=== PATIENT | male | born 1965 | race Asian ===

== ENCOUNTER 2017-12-19 14:13 | Inpatient (IN) | payer BC ==
[~2017-12-19] VITALS: Wt 67.6 kg
[~2017-12-19 14:13] MED LIST: NO HOME MEDICATIONS
[2017-12-19] MEDS ORDERED: TYLENOL W/COD1 UDTAB PO (14:29)
[2017-12-19 15:48] LABS: BASO % 0.6 % (0.0-2.0); EOS # 0.2 (0.0-0.7); EOS % 2.9 % (0-4.0); GRAN % 72.2 % (42.2-75.2); HEMATOCRIT 44.8 % (42.0-52.0); HEMOGLOBIN 15.1 g/dl (13.5-18.0); LYMPH # 1.1 (1.2-3.4); LYMPH % 15.8 % (20.0-51.0); MEAN CELL VOLUME 98 fl (80.0-100.0); MEAN CORPUSCULAR HEMOGLOBIN 33 pg (27.0-31.0); MEAN CORPUSCULAR HGB CONC 34 g/dl (33.0-37.0); MEAN PLATELET VOLUME 9.6 fl (7.4-10.4); MONO # 0.6 (0.1-0.6); MONO % 8.4 % (1.7-9.3); PLATELET COUNT 276 K/mm3 (130-400); RED BLOOD COUNT 4.58 M/mm3 (4.20-5.60); REDCELL DISTRIBUTION WIDTH-CV 11.9 % (11.5-14.5)
[2017-12-19 16:00] LABS: ALBUMIN 4.3 gm/dL (3.5-5.0); BILIRUBIN,TOTAL 0.5 mg/dL (0.0-1.0); C-REACTIVE PROTEIN 1.5 mg/dL (0.0-0.9); CALCIUM 9.3 mg/dL (8.4-10.2); CREATININE, serum 0.62 mg/dL (0.66-1.25); POTASSIUM 4.3 mmol/L (3.4-5.0); TOTAL PROTEIN 7.4 gm/dL (6.4-8.2)
[2017-12-19 16:24] LABS: INR 1.1 (0.8-3.0); PROTHROMBIN TIME 13.1 SECONDS (9.7-12.8)
[2017-12-19 16:26] LABS: PARTIAL THROMBOPLASTIN TIME 34.9 SECONDS (26.0-37.0)
[2017-12-19 18:19] VITALS: BP 134/95; PULSE 72; TEMP 98
[2017-12-19 18:25] VITALS: BP 135/94; PULSE 74; TEMP 98
[2017-12-19 19:58] VITALS: BP 123/87; PULSE 79; TEMP 98.6
[2017-12-20 00:46] VITALS: BP 124/83; PULSE 75; TEMP 98.6
[2017-12-20 05:28] VITALS: BP 116/84; PULSE 97; TEMP 98.6
[2017-12-20 06:13] LABS: BASO % 0.5 % (0.0-2.0); EOS # 0.2 (0.0-0.7); EOS % 2.7 % (0-4.0); GRAN # 4.3 (1.4-6.5); GRAN % 68.6 % (42.2-75.2); HEMATOCRIT 40.9 % (42.0-52.0); HEMOGLOBIN 13.9 g/dl (13.5-18.0); LYMPH # 1.2 (1.2-3.4); LYMPH % 18.2 % (20.0-51.0); MEAN CELL VOLUME 97 fl (80.0-100.0); MEAN CORPUSCULAR HEMOGLOBIN 33 pg (27.0-31.0); MEAN CORPUSCULAR HGB CONC 34 g/dl (33.0-37.0); MEAN PLATELET VOLUME 9.6 fl (7.4-10.4); MONO # 0.6 (0.1-0.6); MONO % 9.5 % (1.7-9.3); PLATELET COUNT 274 K/mm3 (130-400); RED BLOOD COUNT 4.24 M/mm3 (4.20-5.60); REDCELL DISTRIBUTION WIDTH-CV 11.8 % (11.5-14.5)
[2017-12-20 06:32] LABS: CALCIUM 8.8 mg/dL (8.4-10.2); CREATININE, serum 0.68 mg/dL (0.66-1.25); PHOSPHOROUS 3.2 mg/dL (2.5-4.5); POTASSIUM 3.9 mmol/L (3.4-5.0)
[2017-12-20 07:38] VITALS: BP 116/77; PULSE 82; TEMP 98.8
[2017-12-20 11:34] VITALS: BP 118/71; PULSE 88; TEMP 98.1
[2017-12-20 15:34] VITALS: BP 125/95; PULSE 83; TEMP 99.1
[2017-12-20 20:56] VITALS: BP 143/65; PULSE 85; TEMP 98.6
[2017-12-21] VITALS (14 sets, daily range): BP systolic 109–143; BP diastolic 76–98; PULSE 72–91; TEMP 97.8–99.8
[2017-12-22 05:59] VITALS: BP 127/84; PULSE 73; TEMP 98
[2017-12-22 06:52] LABS: BASO % 0.5 % (0.0-2.0); EOS # 0.2 (0.0-0.7); EOS % 3.4 % (0-4.0); GRAN # 4.5 (1.4-6.5); GRAN % 71.2 % (42.2-75.2); HEMATOCRIT 39.7 % (42.0-52.0); HEMOGLOBIN 13.4 g/dl (13.5-18.0); LYMPH # 1.1 (1.2-3.4); LYMPH % 17.1 % (20.0-51.0); MEAN CELL VOLUME 96 fl (80.0-100.0); MEAN CORPUSCULAR HEMOGLOBIN 32 pg (27.0-31.0); MEAN CORPUSCULAR HGB CONC 34 g/dl (33.0-37.0); MEAN PLATELET VOLUME 9.4 fl (7.4-10.4); MONO # 0.5 (0.1-0.6); MONO % 7.5 % (1.7-9.3); PLATELET COUNT 268 K/mm3 (130-400); RED BLOOD COUNT 4.14 M/mm3 (4.20-5.60); REDCELL DISTRIBUTION WIDTH-CV 11.8 % (11.5-14.5)
[2017-12-22 07:09] LABS: CALCIUM 8.5 mg/dL (8.4-10.2); CREATININE, serum 0.78 mg/dL (0.66-1.25); POTASSIUM 3.7 mmol/L (3.4-5.0)
[2017-12-22 07:34] VITALS: BP 120/87; PULSE 68; TEMP 98.7
[2017-12-22 12:00] VITALS: BP 133/90; PULSE 80; TEMP 98.1
[2017-12-22 15:41] VITALS: BP 118/76; PULSE 82; TEMP 97.8
[2017-12-22 19:20] VITALS: BP 135/82; PULSE 77; TEMP 97.8
[2017-12-22 23:34] VITALS: BP 142/94; PULSE 79; TEMP 98.2
[2017-12-23 04:43] VITALS: BP 132/85; PULSE 72; TEMP 97.9
[2017-12-23 08:15] VITALS: BP 129/91; PULSE 83; TEMP 98.5
[2017-12-23 11:54] VITALS: BP 137/91; PULSE 78; TEMP 98.1
[2017-12-23 15:39] VITALS: BP 137/82; PULSE 83; TEMP 98.9
[2017-12-23 20:08] VITALS: BP 133/87; PULSE 77; TEMP 97.7
[2017-12-23 23:02] LABS: QUANTIFERON TB GOLD Positive (Negative)
[2017-12-23 23:25] VITALS: BP 117/77; PULSE 73; TEMP 98.7
[2017-12-24 04:02] VITALS: BP 128/86; PULSE 75; TEMP 97.7
[2017-12-24 07:43] VITALS: BP 131/93; PULSE 68; TEMP 98.9
[2017-12-24 11:08] VITALS: BP 127/85; PULSE 80; TEMP 98.4
[2017-12-24 15:25] VITALS: BP 141/93; PULSE 83; TEMP 97.6
[2017-12-24 17:44] LABS: FOLATE (FOLIC ACID) 9.5 ng/mL (7.0-31.4)
[2017-12-24 19:01] VITALS: BP 139/97; PULSE 72
[2017-12-25] VITALS (7 sets, daily range): BP systolic 126–144; BP diastolic 81–98; PULSE 73–87; TEMP 97.3–98.6
[2017-12-25 07:45] LABS: BASO % 0.3 % (0.0-2.0); EOS # 0.3 (0.0-0.7); EOS % 4.7 % (0-4.0); GRAN # 4.3 (1.4-6.5); HEMATOCRIT 39.9 % (42.0-52.0); HEMOGLOBIN 13.6 g/dl (13.5-18.0); LYMPH % 16.3 % (20.0-51.0); MEAN CELL VOLUME 96 fl (80.0-100.0); MEAN CORPUSCULAR HEMOGLOBIN 33 pg (27.0-31.0); MEAN CORPUSCULAR HGB CONC 34 g/dl (33.0-37.0); MEAN PLATELET VOLUME 9.5 fl (7.4-10.4); MONO # 0.5 (0.1-0.6); MONO % 8.5 % (1.7-9.3); PLATELET COUNT 269 K/mm3 (130-400); RED BLOOD COUNT 4.17 M/mm3 (4.20-5.60); REDCELL DISTRIBUTION WIDTH-CV 11.8 % (11.5-14.5)
[2017-12-25 07:56] LABS: ALBUMIN 3.5 gm/dL (3.5-5.0); CALCIUM 8.8 mg/dL (8.4-10.2); CREATININE, serum 0.79 mg/dL (0.66-1.25); MAGNESIUM 2.2 mg/dL (1.6-2.3); PHOSPHOROUS 3.9 mg/dL (2.5-4.5); POTASSIUM 3.6 mmol/L (3.4-5.0); TOTAL PROTEIN 6.7 gm/dL (6.4-8.2)
[2017-12-25 08:15] LABS: BILIRUBIN UNCONJUGATED 0.4 mg/dL (0.0-1.1); BILIRUBIN,DIRECT 0.1 mg/dL (0.0-0.4); BILIRUBIN,TOTAL 0.6 mg/dL (0.0-1.0)
[2017-12-26 04:04] VITALS: BP 127/89; PULSE 75; TEMP 97.1
[2017-12-26 06:54] LABS: BASO % 0.3 % (0.0-2.0); EOS # 0.3 (0.0-0.7); EOS % 5.5 % (0-4.0); GRAN % 66.6 % (42.2-75.2); HEMATOCRIT 39.7 % (42.0-52.0); HEMOGLOBIN 13.2 g/dl (13.5-18.0); LYMPH # 1.1 (1.2-3.4); LYMPH % 17.7 % (20.0-51.0); MEAN CELL VOLUME 96 fl (80.0-100.0); MEAN CORPUSCULAR HEMOGLOBIN 32 pg (27.0-31.0); MEAN CORPUSCULAR HGB CONC 33 g/dl (33.0-37.0); MEAN PLATELET VOLUME 9.4 fl (7.4-10.4); MONO # 0.6 (0.1-0.6); MONO % 9.4 % (1.7-9.3); PLATELET COUNT 280 K/mm3 (130-400); RED BLOOD COUNT 4.12 M/mm3 (4.20-5.60); REDCELL DISTRIBUTION WIDTH-CV 11.9 % (11.5-14.5)
[2017-12-26 07:09] LABS: CALCIUM 8.6 mg/dL (8.4-10.2); CREATININE, serum 0.67 mg/dL (0.66-1.25); MAGNESIUM 2.1 mg/dL (1.6-2.3); PHOSPHOROUS 3.3 mg/dL (2.5-4.5); POTASSIUM 3.6 mmol/L (3.4-5.0)
[2017-12-26 07:19] VITALS: BP 127/86; PULSE 74; TEMP 97.7
[2017-12-26] MEDS ORDERED: INVANZ INJ1 G/VIAL IV (08:12)
[2017-12-26] MEDS ORDERED: HEPARIN LOCK FLU5 M1 IV (08:17)
[2017-12-26] MEDS ORDERED: NS INT FLUSH 1010 ML IV (08:18)
[2017-12-26] MEDS ORDERED: TYLENOL 325MG325 MG PO (08:49)
== END 2017-12-26 12:48 | disposition home or self-care (01) | DRG 194 ==
LOC: COL.ER 14:13 → MEDICAL 17:21
PROVIDERS: Emergency Medicine; Internal Medicine; Internal Medicine Critical Care Medicine; Physician Assistant
PROC: 0B968ZX Drainage of Right Lower Lobe Bronchus, Via Natural or Artificial Opening Endoscopic, Diagnostic (ICD-10-PCS; 2017-12-21)
PROC: 0B9B8ZX Drainage of Left Lower Lobe Bronchus, Via Natural or Artificial Opening Endoscopic, Diagnostic (ICD-10-PCS; principal; 2017-12-21 10:00)
DX: J12.1 Respiratory syncytial virus pneumonia (principal); J91.8 Pleural effusion in other conditions classified elsewhere; D64.9 Anemia, unspecified
CPT/HCPCS: 99222; 99231-AI; 99232-AI; 99239; C1751; G0378; J1335; J1644; J1956; J2543; J2704; J3370; J7030; J7040; J7050

== ENCOUNTER → 2018-01-13 | Outpatient (CLI) | payer BC ==
[~2018-01-13] MED LIST changes: +HEPARIN LOCK FLU5 M1 IV; +INVANZ INJ1 G/VIAL IV; +NS INT FLUSH 1010 ML IV; +TYLENOL 325MG325 MG PO; +TYLENOL W/COD1 UDTAB PO
== END ==
LOC: COL.RAD 09:39
DX: Z01.89 Encounter for other specified special examinations (principal)

== ENCOUNTER 2018-02-14 09:00 | Outpatient (RCR) | payer BC ==
[2017-12-27 10:42] VITALS: BP 111/81; PULSE 90; TEMP 98.1
[2017-12-28 09:48] VITALS: BP 117/83; PULSE 101; TEMP 97.5
[2017-12-29 09:34] VITALS: BP 113/76; PULSE 99; TEMP 97.8
[2017-12-29 09:38] LABS: HEMATOCRIT 43.5 % (42.0-52.0); HEMOGLOBIN 14.6 g/dl (13.5-18.0); MEAN CELL VOLUME 95 fl (80.0-100.0); MEAN CORPUSCULAR HEMOGLOBIN 32 pg (27.0-31.0); MEAN CORPUSCULAR HGB CONC 34 g/dl (33.0-37.0); PLATELET COUNT 322 K/mm3 (130-400); RED BLOOD COUNT 4.56 M/mm3 (4.20-5.60); REDCELL DISTRIBUTION WIDTH-CV 11.9 % (11.5-14.5)
[2017-12-29 09:50] LABS: BILIRUBIN,TOTAL 0.5 mg/dL (0.0-1.0); CALCIUM 9.1 mg/dL (8.4-10.2); CREATININE, serum 0.77 mg/dL (0.66-1.25); POTASSIUM 4.2 mmol/L (3.4-5.0); TOTAL PROTEIN 7.4 gm/dL (6.4-8.2)
[2017-12-30 09:28] VITALS: BP 109/16; PULSE 102; TEMP 98.3
[2017-12-31 08:34] VITALS: BP 119/85; PULSE 99; TEMP 98
[2018-01-01 08:18] VITALS: BP 114/77; PULSE 98; TEMP 98.1
[2018-01-03 09:23] VITALS: BP 125/86; PULSE 98; TEMP 98.5
[2018-01-04 09:15] VITALS: BP 108/79; PULSE 92; TEMP 97.9
[2018-01-05 09:33] VITALS: BP 103/76; PULSE 102; TEMP 98.6
[2018-01-05 09:35] LABS: HEMATOCRIT 41.3 % (42.0-52.0); HEMOGLOBIN 13.8 g/dl (13.5-18.0); MEAN CELL VOLUME 94 fl (80.0-100.0); MEAN CORPUSCULAR HEMOGLOBIN 31 pg (27.0-31.0); MEAN CORPUSCULAR HGB CONC 33 g/dl (33.0-37.0); MEAN PLATELET VOLUME 9.1 fl (7.4-10.4); PLATELET COUNT 318 K/mm3 (130-400); RED BLOOD COUNT 4.41 M/mm3 (4.20-5.60); REDCELL DISTRIBUTION WIDTH-CV 11.7 % (11.5-14.5)
[2018-01-05 09:45] LABS: ALBUMIN 3.8 gm/dL (3.5-5.0); BILIRUBIN,TOTAL 0.7 mg/dL (0.0-1.0); POTASSIUM 4.2 mmol/L (3.4-5.0); TOTAL PROTEIN 7.3 gm/dL (6.4-8.2)
[2018-01-06 09:26] VITALS: BP 116/79; PULSE 94; TEMP 98
[2018-01-07 08:13] VITALS: BP 115/82; PULSE 90; TEMP 97.6
[2018-01-08 08:20] VITALS: BP 116/76; PULSE 91; TEMP 97.9
[2018-01-09 11:04] VITALS: BP 109/82; PULSE 97; TEMP 98.3
[2018-01-10 09:15] VITALS: BP 114/80; PULSE 100; TEMP 97.4
[2018-01-11 09:33] VITALS: BP 123/76; PULSE 103; TEMP 98.5
[2018-01-12 09:26] VITALS: BP 118/68; PULSE 107; TEMP 98.2
[2018-01-13 08:34] VITALS: BP 115/80; PULSE 104; TEMP 97.6
[2018-01-14 08:47] VITALS: BP 114/83; PULSE 100; TEMP 98
[2018-01-15 08:49] VITALS: BP 117/81; PULSE 101; TEMP 98.4
[2018-01-16 09:16] VITALS: BP 107/79; PULSE 101; TEMP 98
[2018-01-16 10:04] LABS: HEMATOCRIT 40.7 % (42.0-52.0); HEMOGLOBIN 13.9 g/dl (13.5-18.0); MEAN CELL VOLUME 93 fl (80.0-100.0); MEAN CORPUSCULAR HEMOGLOBIN 32 pg (27.0-31.0); MEAN CORPUSCULAR HGB CONC 34 g/dl (33.0-37.0); PLATELET COUNT 288 K/mm3 (130-400); REDCELL DISTRIBUTION WIDTH-CV 11.8 % (11.5-14.5)
[2018-01-16 10:13] LABS: ALBUMIN 3.8 gm/dL (3.5-5.0); BILIRUBIN,TOTAL 0.6 mg/dL (0.0-1.0); CALCIUM 9.2 mg/dL (8.4-10.2); CREATININE, serum 0.83 mg/dL (0.66-1.25); POTASSIUM 4.1 mmol/L (3.4-5.0); TOTAL PROTEIN 7.5 gm/dL (6.4-8.2)
[2018-01-17 09:18] VITALS: BP 115/80; PULSE 106; TEMP 98.2
[2018-01-18 09:20] VITALS: BP 122/82; PULSE 97; TEMP 97.9
[2018-01-19 10:02] VITALS: BP 133/87; PULSE 85; TEMP 97.9
[2018-01-20 09:11] VITALS: BP 125/68; PULSE 65; TEMP 97.1
[2018-01-21 08:20] VITALS: BP 124/88; PULSE 88; TEMP 98.2
[2018-01-22 08:00] VITALS: BP 110/79; PULSE 105; TEMP 99
[2018-01-23 09:23] LABS: HEMATOCRIT 39.4 % (42.0-52.0); HEMOGLOBIN 13.2 g/dl (13.5-18.0); MEAN CELL VOLUME 92 fl (80.0-100.0); MEAN CORPUSCULAR HEMOGLOBIN 31 pg (27.0-31.0); MEAN CORPUSCULAR HGB CONC 34 g/dl (33.0-37.0); PLATELET COUNT 307 K/mm3 (130-400); RED BLOOD COUNT 4.27 M/mm3 (4.20-5.60); REDCELL DISTRIBUTION WIDTH-CV 11.9 % (11.5-14.5)
[2018-01-23 09:34] LABS: ALBUMIN 3.8 gm/dL (3.5-5.0); BILIRUBIN,TOTAL 0.9 mg/dL (0.0-1.0); CALCIUM 9.4 mg/dL (8.4-10.2); CREATININE, serum 0.73 mg/dL (0.66-1.25); POTASSIUM 4.2 mmol/L (3.4-5.0); TOTAL PROTEIN 7.7 gm/dL (6.4-8.2)
[2018-01-23 10:41] VITALS: BP 134/86; PULSE 94; TEMP 98.1
[2018-01-30 11:36] VITALS: BP 129/87; PULSE 100; TEMP 98.5
[2018-02-06 09:36] VITALS: BP 113/70; PULSE 101; TEMP 98.7
[2018-02-06 09:37] LABS: HEMOGLOBIN 11.7 g/dl (13.5-18.0); MEAN CELL VOLUME 91 fl (80.0-100.0); MEAN CORPUSCULAR HEMOGLOBIN 30 pg (27.0-31.0); MEAN CORPUSCULAR HGB CONC 33 g/dl (33.0-37.0); MEAN PLATELET VOLUME 8.7 fl (7.4-10.4); PLATELET COUNT 415 K/mm3 (130-400); RED BLOOD COUNT 3.86 M/mm3 (4.20-5.60)
[2018-02-06 09:38] LABS: HEMATOCRIT 35.1 % (42.0-52.0)
[2018-02-06 09:49] LABS: ALBUMIN 3.6 gm/dL (3.5-5.0); BILIRUBIN,TOTAL 0.6 mg/dL (0.0-1.0); CALCIUM 9.3 mg/dL (8.4-10.2); CREATININE, serum 0.75 mg/dL (0.66-1.25); POTASSIUM 4.2 mmol/L (3.4-5.0); TOTAL PROTEIN 7.7 gm/dL (6.4-8.2)
[~2018-02-14] VITALS: Ht 172.7 cm; Wt 62.7 kg
[2018-02-14 09:25] VITALS: BP 112/85; PULSE 111; TEMP 98.2
== END 2018-02-14 09:36 | disposition home or self-care (01) ==
LOC: EUO 09:00
PROVIDERS: Internal Medicine; Internal Medicine Infectious Disease
DX: J12.1 Respiratory syncytial virus pneumonia (principal)
CPT/HCPCS: J1335; J1644; J7050